=== PATIENT | male | born 1960 | race Caucasian/White ===

== ENCOUNTER 2018-03-11 05:45 | Day surgery (SDC) | payer OTHER ==
[2018-03-10 10:15] VITALS: BMI 33.0
--- NOTE | 2018-03-10 22:57 | HP ---
DATE OF ADMISSION: 03/11/2018 SHORT-STAY HISTORY AND PHYSICAL HISTORY OF PRESENT ILLNESS: Mr. Shan Barr is a 58-year-old Latin-[place] male who comes for a c olonoscopy because of history of colon polyp. He had a very large sessile adenoma removed in 2013. The patient's prep was not very good at that time. He had some retained stool. The patient comes fo r a colonoscopy because of history of colon polyp. ALLERGIES: None. SOCIAL HISTORY: The patient does not smoke, but drinks alcohol socially. MEDICAL ILLNESSES: 1. Hypertension. 2. Hyperlipidemia. 3. Migraine. 4. Colon polyp. 5. Arthritis. PHYSICAL EXAMINATION: VITAL SIGNS: Pulse is 70, blood pressure 130/80. HEENT: Conjunctivae clear. CARDIOVASCULAR: First and second heart sounds normal. LUNGS: Clear to auscultation. ABDOMEN: Soft to palpate. No organomegaly. No tenderness. No masses. ADMITTING DIAGNOSIS: Colon polyp. PLAN: Colonoscopy.
[2018-03-11] MEDS ORDERED: Lidocaine 1% PF 5 ML VIAL ONE (15:38)
[2018-03-11] MEDS ORDERED: PROPOFOL 200 MG/20 ML VIAL ONE (15:38)
--- NOTE | 2018-03-14 10:49 | OP ---
DATE OF SURGERY: 03/11/2018 OPERATIVE PROCEDURE: 1. Colonoscopy with polypectomy. 2. Colonoscopy with 10-Frisian heater probe therapy of polypectomy site, because of bleeding. PREOPERATIVE DIAGNOSIS: Colon polyp. POSTOPERATIVE DIAGNOSES: 1. Large broad-based sessile polyp, sigmoid colon, status post snare cautery. 2. Sigmoid diverticular disease. PROCEDURE NOTE: The patient was placed on his left lateral position and was given sedation by the An esthesia Department. A rectal exam was done before the scope was advanced into the rectum. No lesio ns felt on rectal exam. A Pentax video colonoscope was introduced into the rectum and advanced all t he way into the cecum. The mucosa appeared normal throughout the colon with normal vascular pattern. The appendiceal orifice, ileocecal valve, and cecum, no pathology seen. Withdrawal of scope in the cecum, ascending colon, hepatic flexure, no lesions seen. The transverse colon, splenic flexure, an d descending colon, no pathology seen. The sigmoid colon showed scattered diverticula. A broad-base d sessile polyp over the high sigmoid colon removed with snare cautery. However, on polypectomy, the re was some mild bleeding noted from the polypectomy site. A 10-Frisian heater probe was passed throu gh biopsy channel and the area cauterized with good hemostasis. Rectum showed hemorrhoids. DISCHARGE PLANNING: This is a 58-year-old Latin-[place] male with history of colon polyp, came for a followup colonoscopy. He underwent colonoscopy and polypectomy and also heater probe therapy. DISCHARGE RECOMMENDATIONS: 1. Patient advised to stay on a clear liquid diet for next 24 hours. 2. He is advised to call me should he develop abdominal pain, hematochezia, or fever. 3. In the absence of any of the above symptoms, he will come back to me next week.
== END 2018-03-11 08:55 | disposition home or self-care (01) ==
LOC: SDC 05:45
PROVIDERS: ATTEND Internal Medicine Gastroenterology
PROC: 0DBN8ZX Excision of Sigmoid Colon, Via Natural or Artificial Opening Endoscopic, Diagnostic (ICD-10-PCS; principal; 2018-03-11)
DX: Z12.11 Encounter for screening for malignant neoplasm of colon (principal); D12.5 Benign neoplasm of sigmoid colon; K57.30 Diverticulosis of large intestine without perforation or abscess without bleeding; I10 Essential (primary) hypertension; E78.5 Hyperlipidemia, unspecified; G43.909 Migraine, unspecified, not intractable, without status migrainosus; M19.90 Unspecified osteoarthritis, unspecified site; Z86.010 Personal history of colon polyps; Z79.899 Other long term (current) drug therapy; Z98.890 Other specified postprocedural states
CPT/HCPCS: 88305; J2001; J2704